=== PATIENT | male | born 1940 | race African-American/Black ===

== ENCOUNTER 2017-06-06 06:38 | Observation (INO) | payer OTHER ==
[~2017-06-06] VITALS: Ht 188 cm; Wt 104.1 kg
--- NOTE | ~2017-06-06 | P ---
[facility] [place] [address] PROCEDURE REPORT Name: SANDRA ALCARAZ Room #: 206-P [facility] M.R.#: [id number] Admission: 06/06/17 Attend Phys: Yovany Wheatley MD Discharge: Date of : 40 Report #: [id number] THIS REPORT FOR: //name// CC: Americo Wheatley PROCEDURE: Pacemaker implantation report. PREOPERATIVE DIAGNOSIS: Heart block. POSTOPERATIVE DIAGNOSIS: Heart block. HISTORY: The patient is a 77-year-old who I recently saw in consultation after he presented for a stress test and was found to have some evidence of Mobitz 1 and 2:1 heart block. I had the patient wear gambling monitor and showed that he had periods of complete heart block. He is here for dual chamber pacemaker implantation. ANESTHESIA: The patient underwent MAC anesthesia with no anesthesia related complications. DESCRIPTION OF PROCEDURE: The patient underwent informed consent. We discussed the details of the procedure including the risks, which include but not limited to bleeding, infection, vascular damage and cardiac perforation. He understood these risks and is willing to proceed. As such, he was brought to the EP laboratory in a fasting and sedated state, prepped and draped in a sterile fashion. He received IV antibiotics prior to the initiation of the procedure and underwent a venogram showing patency of left axillary vein. Next, I injected 20 mL of lidocaine below the level of left clavicle. Incision was made, pocket was created over the prepectoral fascia and access was obtained twice in the left axillary vein using the extrathoracic approach with sheaths positioned using the modified Seldinger technique. Next, the ventricular lead was placed into the right ventricle with adequate pacing and sensing thresholds. Next, I attempted to place the atrial lead. I placed the atrial lead 3 times and it would dislodge in the standard position. I think that he probably had some surgical changes to his atrium from prior heart surgery. I felt that this lead was not functioning and therefore another lead was opened and this dislodged once at a more lateral position and then I found another site and was able to deliver the lead here. I did test the lead by advancing the lead several times and this finally did not dislodge. It had good pacing and sensing thresholds. Next, the leads were sutured to the prepectoral fascia, were connected to the device. The pocket was irrigated with vancomycin and then the pocket was closed in 3 layers using 2-0 for the deep layer, 3-0 for the mid layer, 4-0 for the subcuticular layer and surgical glue was placed to the outer skin layer. The patient awoke neurologically and hemodynamically [address] [address] PROCEDURE REPORT Name: SANDRA ALCARAZ Room #: 206-P [facility] M.R.#: [id number] Admission: 06/06/17 Attend Phys: Yovany Wheatley MD Discharge: Date of : 40 Report #: [id number] intact with no complications and no significant bleeding. The implanted pacemaker was a [employer] model #KY0801, serial #[id number]. The atrial lead was a [employer] model #2088TC, 52 cm, serial #[id number]. This lead demonstrated a P-wave of 2.6 millivolts, pacing impedance of 400 ohms and pacing threshold 0.5 volts at 0.4 milliseconds. The RV lead was a [employer] model #2088TC, 58 cm, serial #[id number] with an R-wave of 8.4 millivolts, pacing impedance of 580 ohms and pacing threshold of 0.5 volts at 0.4 milliseconds. The lead that was initially used, but removed was a [employer] model #2088TC, 52 cm, serial #[id number]. The device programmed to the DDD 60-130 mode. There was some evidence of PMT and programming changes were made to avoid this. CONCLUSIONS: 1. Successful dual-chamber pacemaker implantation. 2. Satisfactory atrial and ventricular pacing and sensing thresholds. By: 1012 [id number] Yovany Wheatley MD /nt
--- NOTE | ~2017-06-06 | D ---
[facility] [place] [address] DISCHARGE SUMMARY Name: SANDRA ALCARAZ Room #: 206-P [facility] M.R.#: [id number] Admission: 06/06/17 Attend Phys: Yovany Wheatley MD Discharge: Date of : 40 Report #: [id number] THIS REPORT FOR: //name// CC: Americo Vang [facility] COURSE: The patient is a 77-year-old male well known to me. He was admitted for permanent pacemaker dual chamber after followup revealing complete heart block with significant bradycardia, although presyncopal. He has stable angina and we are treating that aggressively with medicines. This has not worsened. He subsequently underwent a dual chamber [employer] D[employer] pacemaker by EP service, Dr. Wheatley. He is up and ambulating here this morning. This arm was in the sling overnight. The site looks quite good. He is voicing no complaints. He is scheduled for a pacemaker check in [address] Wheatley, then will follow up with me 3 months later. His chest x-ray was performed this morning and there is no acute process, no pneumothorax. His pacemaker battery is in a good position. He remained hemodynamically stable. His blood pressure is 128/64, pulse 60. His exam is unremarkable. The site is clean and dry. Chest x-ray shows no pneumothorax. He will be discharged to home. His restrictions with the left upper extremity and shoulder have been instructed. He has this pacer and site check in [address] Wheatley. No lifting with that upper extremity. No MRI or dental work until further evaluation. He will be discharged back on his home medications of amlodipine 5, baby aspirin, Coreg 6.25, vitamin D, Plavix, colchicine, Lasix 40, insulin, lisinopril 40, omeprazole, Ranexa 500 b.i.d., Protonix, Crestor. DISCHARGE DIAGNOSES: 1. Complete heart block with placement of permanent pacemaker. 2. Coronary artery disease with stable angina, status post coronary artery bypass graft. These lesions are not amenable to intervention. 3. Diabetes. 4. Hypertension. 5. Hypercholesterolemia. 6. Moderate ischemic cardiomyopathy. 7. Back surgery. Thank you for asking me to assist in the care of this patient. By: [id number] 1045 Americo Young MD, FACC /nt
[~2017-06-06 06:38] MED LIST: ACIDOPHILUS1 EACH PO; AMARYL2 MG PO; AMLODIPINE BESYL5 MG PO; ASPIR 8181 M1 PO; ASPIRIN325 PO; AUGMENTIN 875-1 EACH PO; COLCHICINE0.6 MG PO; CRESTOR10 MG PO; FUROSEMIDE 40 M40 M1 PO; GLUCOPHAGE500 MG PO; HUMALOG100 UNIT/1 SQ; IMDUR 30 MG TAB30 M1 PO; IMDUR 60 MG TAB60 M1 PO; KLOR-CON 1010 MEQ PO; LANTUS100 UNIT/M SUBQ; LISINOPRIL40 MG PO; LOPRESSOR100 MG PO; LORATIDINE 10 M10 M1 PO; ONGLYZA2.5 MG PO; PLAVIX 75 MG TA75 M1 PO; PRILOSEC 20 MG20 MG PO; RANEXA 500 MG500 M1 PO; RANEXA500 MG PO; SIMVASTATIN40 MG PO; ULORIC40 MG PO; ZOFRAN 4 MG ORAL4 M1 DIS
[2017-06-06 07:09] VITALS: BP 147/53
[2017-06-06] MEDS ORDERED: AMLODIPINE BESYL5 MG PO (07:14)
[2017-06-06] MEDS ORDERED: VITAMIN D1000 UNI1 PO (07:15)
[2017-06-06] MEDS ORDERED: COREG6.25 MG PO (07:15)
[2017-06-06 07:16] LABS: HEMATOCRIT 35.3 % (42.0-52.0); HEMOGLOBIN 11.9 gm/dL (14.0-18.0); MCH 30.6 pg (26.0-34.0); MCHC 33.7 g/dL (28.0-37.0); PLATELET COUNT 267 thou/uL (150-400); RBC 3.88 mil/uL (4.50-6.00); RDW 12.6 % (10.5-14.5); WBC 9.2 thou/uL (4.0-11.0)
[2017-06-06 07:17] LABS: MANUAL DIFF YES
[2017-06-06 07:27] LABS: CALCIUM 9.2 mg/dL (8.5-10.1); CREATININE 2.6 mg/dL (0.7-1.3); POTASSIUM 4.3 mmol/L (3.5-5.1)
[2017-06-06 07:33] LABS: ALBUMIN 3.7 g/dL (3.4-5.0); TOTAL BILIRUBIN 0.3 mg/dL (<0.1-1.0); TOTAL PROTEIN 7.6 g/dL (6.4-8.2)
[2017-06-06 07:35] LABS: PROTIME 10.2 Seconds (9.3-11.4)
[2017-06-06 08:03] LABS: ABSOLUTE NEUTROPHILS 6.3 thou/uL (1.4-8.2); TOTAL CELL COUNT 100
[2017-06-06 08:04] LABS: ANISOCYTOSIS SLIGHT
[2017-06-06 11:34] VITALS: BP 151/77
[2017-06-06 16:47] VITALS: BP 125/77
[2017-06-06 19:43] VITALS: BP 147/76
[2017-06-06 23:37] VITALS: BP 139/80
[2017-06-07 03:36] VITALS: BP 140/74
[2017-06-07 07:40] VITALS: BP 128/65
[2017-06-07 12:41] VITALS: BP 128/65
[2017-06-07 19:20] VITALS: BP 128/65
== END 2017-06-07 13:57 | disposition home or self-care (01) ==
LOC: CATH 06:38 → 2N 11:26 → CATH 15:26 → 2N 06-07 13:57
PROVIDERS: Internal Medicine Cardiovascular Disease
DX: I25.10 Atherosclerotic heart disease of native coronary artery without angina pectoris (principal); I25.2 Old myocardial infarction; E78.5 Hyperlipidemia, unspecified; E11.22 Type 2 diabetes mellitus with diabetic chronic kidney disease; I25.5 Ischemic cardiomyopathy; I12.9 Hypertensive chronic kidney disease with stage 1 through stage 4 chronic kidney disease, or unspecified chronic kidney disease; N18.9 Chronic kidney disease, unspecified; Z95.1 Presence of aortocoronary bypass graft; I44.2 Atrioventricular block, complete; E78.00 Pure hypercholesterolemia, unspecified
CPT/HCPCS: 62110; 62900; 70005

== ENCOUNTER → 2018-03-24 | Outpatient (CLI) | payer OTHER ==
[~2018-03-24] MED LIST changes: +COREG6.25 MG PO; +VITAMIN D1000 UNI1 PO
== END ==
LOC: ULTRA 06:28
DX: N28.1 Cyst of kidney, acquired (principal); K76.0 Fatty (change of) liver, not elsewhere classified

== ENCOUNTER 2018-04-17 15:21 | Inpatient (IN) | payer OTHER ==
[~2018-04-17] VITALS: Ht 188 cm; Wt 102.1 kg
--- NOTE | ~2018-04-17 | EKG ---
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1940 Requested By: Quinton Pena Order Number: [id number] MD: Carlos Orellana Measurements Intervals [place] Rate: 109 P: 123 CO: 95 QRS: 2 QRSD: 163 T: 167 QT: 382 QTc: 515 Interpretive Statements Ventricular-paced rhythm No further analysis attempted due to paced rhythm Compared to ECG 07/07/2016 18:34:11 Atrial fibrillation no longer present Intraventricular conduction delay no longer present Myocardial infarct finding no longer present Electronically Signed On 04-18-2018 11:34:54 CDT by Carlos Orellana [email or web address] <ELECTRONICALLY SIGNED> By: Carlos Orellana MD 04/18/18 1134 1526 1526 Carlos Orellana MD /RAMEZ
--- NOTE | ~2018-04-17 | HC ---
[facility] [place] [address] CONSULTATION Name: SANDRA ALCARAZ Room #: 358-P [facility] IN ..#: [id number] Admission: 04/17/18 Attend Phys: Win Infante MD Discharge: 04/20/18 Date of : 40 Report #: [id number] THIS REPORT FOR: //name// CC: Rob Infante DATE OF SERVICE: 04/20/2018 REASON FOR CONSULTATION: Chronic kidney disease. HISTORY OF PRESENT ILLNESS: The patient is well known to our service, followed in our offices by Dr. Marlow with chronic kidney disease and a baseline creatinine of about 2. He was admitted with a subendocardial myocardial infarction 3 days ago. He stabilized since that time. His creatinine is stabilized in the range of 2.2. Chest pain has resolved. He is not short of breath. PAST MEDICAL HISTORY: History of coronary bypass. He has had multiple coronary artery catheterizations since that time, apparently has disease, not amenable to revascularization. Last year, he had a pacemaker for complete heart block. He has also had longstanding diabetes mellitus with peripheral neuropathy, hypertension and dyslipidemia. FAMILY HISTORY: Negative for renal disease. SOCIAL HISTORY: No cigarettes or alcohol. HOME MEDICATIONS: Include lisinopril 40 mg daily, furosemide 40 mg b.i.d., Ranexa, Crestor 10 mg daily, Imdur 60 mg daily, amlodipine 10 mg daily, Coreg 6.25 mg b.i.d., omeprazole 20 mg daily, Xarelto 15 mg daily. REVIEW OF SYSTEMS: GENERAL: He is currently feeling fairly well. EYES: He has some trouble with his eyes, but he cannot give me a specific diagnosis or whether this is due to diabetes. ENT: Hearing okay, swallows okay. No mouth sores. ENDOCRINE: Positive for the diabetes. RESPIRATORY: Not short-winded, no pleuritic pain. No cough. CARDIAC: He did have the chest pain that has resolved. GASTROINTESTINAL: No nausea, vomiting, diarrhea or bloody stools. GENITOURINARY: Good urinary stream without dysuria, hematuria or stones. NEUROLOGIC: He does have numbness and tingling in his feet consistent with peripheral neuropathy. SKIN: No skin rashes, lesions or ulcers. MUSCULOSKELETAL: No arthritis. [address] [address] CONSULTATION Name: SANDRA ALCARAZ Room #: 358-P [facility].#: [id number] Admission: 04/17/18 Attend Phys: Win Infante MD Discharge: 04/20/18 Date of : 40 Report #: [id number] SOCIAL HISTORY: No cigarettes or alcohol. PHYSICAL EXAMINATION: GENERAL: This is a reasonably comfortable-appearing elderly gentleman in no acute distress. SKIN: Unremarkable. SKELETAL: Well developed, well nourished, nonobese. HEENT: Extraocular movements are full. Vision grossly intact. No scleral icterus. Hearing intact. Mucous membranes are moist. Tongue, buccal mucosa benign. NECK: Supple. CHEST: Clear to auscultation. HEART: Regular, without murmurs, gallops or rubs. ABDOMEN: Soft and nontender, without bruits, masses or organomegaly. EXTREMITIES: Show no peripheral edema. Pulses intact. NEUROLOGIC: Shows some numbness in the feet. LABORATORY DATA: Urinalysis did not show proteinuria. Hemoglobin was 10.6, creatinine 2.3, BUN 32. ASSESSMENT AND PLAN: 1. Chronic kidney disease. He has chronic kidney disease followed in our offices. He has had longstanding diabetes and hypertension. I do not believe a more specific diagnosis has been made, but he has been fairly stable. 2. Coronary artery disease, status post recent subendocardial myocardial infarction, previous coronary bypass. 3. History of complete heart block with pacemaker. 4. History of hypertension. 5. Longstanding diabetes mellitus with peripheral neuropathy. <ELECTRONICALLY SIGNED> By: Americo Pruett MD 04/22/18 1150 0749 0915 Americo Pruett MD /nt
--- NOTE | ~2018-04-17 | HC ---
[facility] [place] [address] CONSULTATION Name: SANDRA ALCARAZ Room #: 358-P [facility].#: [id number] Admission: 04/17/18 Attend Phys: Win Infante MD Discharge: Date of : 40 Report #: [id number] THIS REPORT FOR: //name// CC: Rob Infante INDICATION: Chest pains. HISTORY OF PRESENT ILLNESS: This is a 77-year-old gentleman with a history of CAD, presenting with chest discomfort. Yesterday, he developed burning-like sensation in the substernal area, nonradiating. He denies any associated diaphoresis or shortness of breath. It lasted for approximately 30 minutes in duration. There is no history of fever, chills, PND or orthopnea. PAST MEDICAL HISTORY: History of CABG. Cardiac catheterization in [address] Young revealed a patent WHITE to the LAD, however, there is total occlusion within the [place] LAD after the anastomosis. There were patent vein graft to OM1, OM2 and the PDA. Since then, he has had subsequent cardiac catheterizations at other institutions, reportedly had vessels not amenable to revascularization. History of pacemaker insertion in 2017 for heart block. History of diabetes mellitus, hypertension, hypercholesterolemia, PAF. ALLERGIES: None. MEDICATIONS: At home include lisinopril 40 mg daily, Lasix 40 mg twice a day, Ranexa therapy, potassium, Crestor 10 mg at night, Imdur 60 mg, aspirin once a day, insulin, amlodipine, Coreg 6.25 mg twice a day, omeprazole and Xarelto 50 mg in the evening. SOCIAL HISTORY: Negative for tobacco use. FAMILY HISTORY: Negative for premature CAD. REVIEW OF SYSTEMS: A full 10-point review of systems performed. Only the pertinent positives and negatives are described in the HPI. PHYSICAL EXAMINATION: VITAL SIGNS: Blood pressure 136/75, heart rate is 60 beats per minute. GENERAL APPEARANCE: An overweight male in no acute respiratory distress. HEAD AND EYES: Normocephalic. Sclerae are anicteric. ENT: Oral mucosa moist. NECK: Supple. LUNGS: Clear to auscultation. CARDIAC: Regular rate and rhythm. S1, S2 positive. ABDOMEN: Soft, nontender. EXTREMITIES: No cyanosis. Trace edema. [facility] [address] [place] [address] CONSULTATION Name: SANDRA ALCARAZ Room #: 358-P [facility] MIris#: [id number] Admission: 04/17/18 Attend Phys: Win Infante MD Discharge: Date of : 40 Report #: [id number] ECG reveals a ventricular paced rhythm. LABORATORY VALUES: Peak troponin is 2.75. White count 12.5, hemoglobin is 11.8. Initial creatinine was 2.4, down to 2.1 today. ASSESSMENT AND PLAN: 1. Non-ST elevation myocardial infarction, he is chest pain free at this time on IV heparin. We will continue with medical therapy for now. We will need to discuss with Dr. Young regarding a repeat cardiac catheterization versus noninvasive stress testing. It would also be determined if his creatinine improves below 2.0. 2. Heart block, status post permanent pacemaker. Continue telemetry. 3. Chronic renal insufficiency, creatinine of 2.4 initially, down to 2.1. Continue with hydration. 4. Paroxysmal atrial fibrillation, hold on anticoagulation therapy as he may require an invasive procedure. Continue with the beta felisha. 5. Hypertension, continue with cardiac medications. <ELECTRONICALLY SIGNED> By: Carlos Orellana MD 04/19/18 0753 1127 1244 Carlos Orellana MD /nt
[2018-04-17 16:08] VITALS: BP 154/87
[2018-04-17] MEDS ORDERED: XARELTO15 MG PO (16:20)
[2018-04-17 16:24] LABS: EOSINOPHILS 1.6 % (0.0-3.0); HEMATOCRIT 37.4 % (42.0-52.0); HEMOGLOBIN 12.6 gm/dL (14.0-18.0); LYMPHOCYTES 17.7 % (24.0-44.0); MCH 30.9 pg (26.0-34.0); MCHC 33.6 g/dL (28.0-37.0); MCV 91.8 fL (80.0-100.0); MONOCYTES 8.3 % (1.0-8.0); PLATELET COUNT 311 thou/uL (150-400); POLYS 71.4 % (36.0-66.0); RBC 4.07 mil/uL (4.50-6.00); RDW 12.9 % (10.5-14.5); WBC 11.2 thou/uL (4.0-11.0)
[2018-04-17 16:29] LABS: ANION GAP 9 mmol/L (7-16); BUN 32 mg/dL (7-18); CALCIUM 9.7 mg/dL (8.5-10.1); CHLORIDE 104 mmol/L (98-107); CO2 24 mmol/L (21-32); CREATININE 2.4 mg/dL (0.7-1.3); GLUCOSE 137 mg/dL (74-106); POTASSIUM 3.8 mmol/L (3.5-5.1); SODIUM 137 mmol/L (136-145)
[2018-04-17 16:39] LABS: ALBUMIN 4.1 g/dL (3.4-5.0); MAGNESIUM 2.2 mg/dL (1.8-2.4); SGOT 18 U/L (15-37); SGPT 19 U/L (30-65); TOTAL BILIRUBIN 0.5 mg/dL (<0.1-1.0); TOTAL PROTEIN 8.2 g/dL (6.4-8.2)
[2018-04-17 16:40] LABS: TROPONIN-I < 0.04 ng/mL (<0.06)
[2018-04-17 18:21] VITALS: BP 142/65
[2018-04-17 19:00] VITALS: BP 138/70
[2018-04-17 19:20] VITALS: BP 166/90
[2018-04-18 01:08] LABS: HEMATOCRIT 31.9 % (42.0-52.0); HEMOGLOBIN 11.1 gm/dL (14.0-18.0); MCH 31.4 pg (26.0-34.0); MCHC 34.6 g/dL (28.0-37.0); MCV 90.8 fL (80.0-100.0); RBC 3.52 mil/uL (4.50-6.00); RDW 12.8 % (10.5-14.5); WBC 9.6 thou/uL (4.0-11.0)
[2018-04-18 01:20] LABS: INR 1.3
[2018-04-18 04:00] VITALS: BP 138/64
[2018-04-18 06:37] LABS: HEMATOCRIT 33.6 % (42.0-52.0); HEMOGLOBIN 11.8 gm/dL (14.0-18.0); MCH 31.7 pg (26.0-34.0); MCHC 35.1 g/dL (28.0-37.0); MCV 90.3 fL (80.0-100.0); RBC 3.72 mil/uL (4.50-6.00); RDW 12.4 % (10.5-14.5); WBC 12.5 thou/uL (4.0-11.0)
[2018-04-18 06:48] LABS: CALCIUM 9.3 mg/dL (8.5-10.1); CREATININE 2.1 mg/dL (0.7-1.3)
[2018-04-18 08:00] VITALS: BP 136/75
[2018-04-18 12:00] VITALS: BP 123/66
[2018-04-18 15:14] LABS: URINE BILIRUBIN NEGATIVE (Negative); URINE BLOOD NEGATIVE (Negative); URINE CLARITY CLEAR; URINE COLOR YELLOW; URINE GLUCOSE-RANDOM* TRACE (Negative); URINE KETONES NEGATIVE (Negative); URINE LEUKOCYTES NEGATIVE (Negative); URINE NITRITE NEGATIVE (Negative); URINE PROTEIN (DIPSTICK) NEGATIVE (Negative); URINE SPECIFIC GRAVITY 1.015 (1.005-1.035); URINE UROBILINOGEN 0.2 E.U./dl (0.2-1.0)
[2018-04-18 15:21] LABS: URINE CREATININE-RANDOM* 58.5 mg/dL; URINE PROTEIN-RANDOM* 7.4 mg/dL (<11.9)
[2018-04-18 16:00] VITALS: BP 136/71
[2018-04-18 19:30] VITALS: BP 143/53
[2018-04-19 03:30] LABS: HEMATOCRIT 31.4 % (42.0-52.0); HEMOGLOBIN 10.8 gm/dL (14.0-18.0); MCH 31.2 pg (26.0-34.0); MCHC 34.4 g/dL (28.0-37.0); MCV 90.6 fL (80.0-100.0); RBC 3.46 mil/uL (4.50-6.00); RDW 12.7 % (10.5-14.5); WBC 9.3 thou/uL (4.0-11.0)
[2018-04-19 03:39] LABS: CALCIUM 8.7 mg/dL (8.5-10.1); CREATININE 2.2 mg/dL (0.7-1.3); POTASSIUM 4.2 mmol/L (3.5-5.1); TOTAL BILIRUBIN 0.3 mg/dL (<0.1-1.0); TOTAL PROTEIN 6.6 g/dL (6.4-8.2)
[2018-04-19 03:40] VITALS: BP 123/76
[2018-04-19 07:04] VITALS: BP 114/64
[2018-04-19 11:59] VITALS: BP 125/66
[2018-04-19 17:24] VITALS: BP 143/72
[2018-04-19 19:20] VITALS: BP 139/78
[2018-04-20 04:30] VITALS: BP 112/59
[2018-04-20 05:59] LABS: HEMATOCRIT 30.5 % (42.0-52.0); HEMOGLOBIN 10.6 gm/dL (14.0-18.0); MCH 31.3 pg (26.0-34.0); MCHC 34.9 g/dL (28.0-37.0); MCV 89.6 fL (80.0-100.0); RBC 3.4 mil/uL (4.50-6.00); RDW 12.8 % (10.5-14.5); WBC 9.2 thou/uL (4.0-11.0)
[2018-04-20 06:20] LABS: ALBUMIN 2.9 g/dL (3.4-5.0); CALCIUM 8.2 mg/dL (8.5-10.1); CREATININE 2.3 mg/dL (0.7-1.3); POTASSIUM 3.8 mmol/L (3.5-5.1); TOTAL BILIRUBIN 0.3 mg/dL (<0.1-1.0); TOTAL PROTEIN 6.3 g/dL (6.4-8.2)
[2018-04-20 08:00] VITALS: BP 142/72
[2018-04-20 12:00] VITALS: BP 137/78
[2018-04-20 16:00] VITALS: BP 146/73
[2018-04-20] MEDS ORDERED: NITROGLYCERIN0.4 MG SUBLING (16:15)
[2018-04-20 16:30] VITALS: BP 142/72
[2018-04-20] MEDS ORDERED: PROTONIX40 M1 PO (16:49)
== END 2018-04-20 17:51 | disposition home or self-care (01) | DRG 280 ==
LOC: ER 15:21 → 3W 17:24 → EROBS 17:24 → 3W 19:04 → ENTRNSPT 04-20 17:17 → 3W 04-20 17:51
PROVIDERS: Emergency Medicine; Hospitalist; Internal Medicine Cardiovascular Disease
PROC: 05HY33Z Insertion of Infusion Device into Upper Vein, Percutaneous Approach (ICD-10-PCS; principal; 2018-04-17)
DX: I21.4 Non-ST elevation (NSTEMI) myocardial infarction (principal); N17.0 Acute kidney failure with tubular necrosis; I44.2 Atrioventricular block, complete; I50.30 Unspecified diastolic (congestive) heart failure; I13.0 Hypertensive heart and chronic kidney disease with heart failure and stage 1 through stage 4 chronic kidney disease, or unspecified chronic kidney disease; E78.00 Pure hypercholesterolemia, unspecified; K21.9 Gastro-esophageal reflux disease without esophagitis; I25.10 Atherosclerotic heart disease of native coronary artery without angina pectoris; N18.9 Chronic kidney disease, unspecified; I48.0 Paroxysmal atrial fibrillation; E11.51 Type 2 diabetes mellitus with diabetic peripheral angiopathy without gangrene; E78.5 Hyperlipidemia, unspecified; E11.22 Type 2 diabetes mellitus with diabetic chronic kidney disease; E11.42 Type 2 diabetes mellitus with diabetic polyneuropathy; Z95.5 Presence of coronary angioplasty implant and graft; Z79.4 Long term (current) use of insulin; I25.2 Old myocardial infarction; Z95.1 Presence of aortocoronary bypass graft; Z79.899 Other long term (current) drug therapy
CPT/HCPCS: 10779; 27001

== ENCOUNTER 2019-01-31 12:20 | Emergency (ER) | payer OTHER ==
[~2019-01-31] VITALS: Ht 188 cm; Wt 95.3 kg
[~2019-01-31 12:20] MED LIST changes: +NITROGLYCERIN0.4 MG SUBLING; +PROTONIX40 M1 PO; +XARELTO15 MG PO
[2019-01-31 12:31] VITALS: BP 138/63
[2019-01-31] MEDS ORDERED: PREDNISONE 20 M20 MG PO (13:06)
[2019-01-31] MEDS ORDERED: NORFLEX100 MG PO (13:08)
[2019-01-31] MEDS ORDERED: TRAMADOL 50 MG50 MG PO (13:08)
== END 2019-01-31 13:45 | disposition home or self-care (01) ==
LOC: ER 12:20
DX: M25.511 Pain in right shoulder (principal); I12.9 Hypertensive chronic kidney disease with stage 1 through stage 4 chronic kidney disease, or unspecified chronic kidney disease; E11.22 Type 2 diabetes mellitus with diabetic chronic kidney disease; N18.9 Chronic kidney disease, unspecified; K21.9 Gastro-esophageal reflux disease without esophagitis; I25.10 Atherosclerotic heart disease of native coronary artery without angina pectoris; I73.9 Peripheral vascular disease, unspecified; Z95.5 Presence of coronary angioplasty implant and graft; Z79.4 Long term (current) use of insulin; Z95.1 Presence of aortocoronary bypass graft

== ENCOUNTER → 2019-11-18 | Outpatient (CLI) | payer OTHER ==
[~2019-11-18] MED LIST changes: +MINOCYCLINE HC100 M2 PO; +NORFLEX100 MG PO; +PREDNISONE 20 M20 MG PO; +TOPROL XL50 MG PO; +TRAMADOL 50 MG50 MG PO
== END ==
LOC: SJCVCIMAG 11-12 10:42
DX: I08.8 Other rheumatic multiple valve diseases (principal); I44.2 Atrioventricular block, complete; I42.8 Other cardiomyopathies; I10 Essential (primary) hypertension; I25.5 Ischemic cardiomyopathy; I25.810 Atherosclerosis of coronary artery bypass graft(s) without angina pectoris; I48.91 Unspecified atrial fibrillation; E78.5 Hyperlipidemia, unspecified; E11.9 Type 2 diabetes mellitus without complications; E78.00 Pure hypercholesterolemia, unspecified; I25.2 Old myocardial infarction; Z79.82 Long term (current) use of aspirin; Z79.4 Long term (current) use of insulin; Z79.899 Other long term (current) drug therapy; Z95.1 Presence of aortocoronary bypass graft; Z95.0 Presence of cardiac pacemaker

== ENCOUNTER → 2019-11-29 | Outpatient (CLI) | payer OTHER | LOC: SJCVCIMAG 10:24 | DX: I65.23 Occlusion and stenosis of bilateral carotid arteries (principal); I25.10 Atherosclerotic heart disease of native coronary artery without angina pectoris; E78.00 Pure hypercholesterolemia, unspecified; I42.9 Cardiomyopathy, unspecified; R53.83 Other fatigue; I73.9 Peripheral vascular disease, unspecified; R06.02 Shortness of breath ==

== ENCOUNTER 2019-12-03 09:05 | Observation (INO) | payer OTHER ==
[2019-12-03] VITALS (13 sets, daily range): BP systolic 101–130; BP diastolic 49–79
[~2019-12-03] VITALS: Ht 188 cm; Wt 100.8 kg
--- NOTE | ~2019-12-03 | P ---
[facility] [place] [address] PROCEDURE REPORT Name: SANDRA ALCARAZ Room #: 211-P [facility] M..#: [id number] Admission: 12/03/19 Attend Phys: Yovany Wheatley MD Discharge: Date of : 40 Report #: [id number] THIS REPORT FOR: //name// CC: Rob Wheatley PROCEDURE: Bi-V pacemaker. PREOPERATIVE DIAGNOSIS: 1. Complete heart block. 2. Chronic right ventricular pacing. 3. Cardiomyopathy. HISTORY: The patient is a 79-year-old male with history of coronary artery disease, status post CABG as well as prior pacemaker implantation for complete heart block, who has had a decreased ejection fraction, likely due to chronic right ventricular pacing. He has [employer] functional class 2-3 heart failure symptoms. He is here for upgrade from a dual chamber pacemaker to a Bi-V pacemaker. ANESTHESIA: The patient underwent MAC anesthesia with no anesthesia related complications. DESCRIPTION OF PROCEDURE: The patient underwent informed consent. We discussed the details of the procedure including the risks, which include but not limited to bleeding, infection, vascular damage, cardiac perforation, pneumothorax. He understood these risks and is willing to proceed. The patient was brought to the EP laboratory in fasting and sedated state, prepped and draped in a sterile fashion, received IV antibiotics prior to initiation of the procedure. He then underwent a venogram showing patency of the left axillary vein. Next, I injected lidocaine at the incision site. The chronic pocket was entered and then I obtained access to left axillary vein x 1 using the extrathoracic approach with sheath positioned using the modified Seldinger technique. Next, a coronary sinus guide sheath was placed into the right atrium. I had difficulties finding the CS and in fact it was quite lower than where I was initially looking at the heel of the RV lead. Finally, when I got the sheath into the coronary sinus, I performed a venogram using a balloon and there was a large middle cardiac vein. There was nothing on the middle coronary sinus and there was a large anterolateral branch. I did initially have difficulties even getting into the coronary sinus and had to use a double wire technique as I initially had engaged the middle cardiac vein and then used another wire to get into the coronary sinus body. I then attempted to take a lead up into the coronary sinus, but the lead was very difficult to advance. I therefore removed this sheath and placed a new 9-Andorran short sheath and attempted to advance the lead again and very similarly I was having much difficulty advancing the lead in the sheath. It is likely that there was a lot [facility] [address] [place] [address] PROCEDURE REPORT Name: SANDRA ALCARAZ Room #: 211-P [facility] Phillip MMegRMeg#: [id number] Admission: 12/03/19 Attend Phys: Yovany Wheatley MD Discharge: Date of : 40 Report #: [id number] of tension on the sheath in the atrium, which was making it hard to advance the lead as there was probably a kink somewhere. Therefore, we removed the 9-Andorran short sheath and the 9-Andorran coronary sinus sheath and placed a 10-Andorran short sheath and a larger Andorran coronary sinus sheath and through this all over the wire that we had left inside the coronary sinus. Once I had placed a new sheath into the coronary sinus, the LV lead easily tracked and I was able to place this into this anterolateral branch. There were good pacing thresholds at the distal tips. The sheaths were split. The lead remained stable. The lead was sutured to prepectoral fascia. I changed the lead over to the newer device. The pocket was irrigated with vancomycin and the pocket was then closed in 2 layers using 2-0 for the deep layer, 3-0 for the middle layer and surgical glue was placed on outer skin layer. The patient awoke neurologically and hemodynamically intact. No complications and no significant bleeding. The explanted pacemaker was a [employer] model [id number], serial #[id number], implanted on 06/06/2017. His two preexisting leads were also implanted at that time. His newly implanted device was a [employer] model #3562, serial #[id number]. The atrial lead was a [employer] model #2088TC, 52 cm, serial #[id number]. RV lead was a [employer] model #2088TC, serial #[id number]. The newly implanted LV lead was a [employer], model #1458, 86 cm, serial [id number]. The atrial lead demonstrated no underlying P waves. The pacing impedance was 340 ohms, pacing threshold 0.5 volts at 0.4 milliseconds. The RV lead demonstrated no underlying R waves, pacing impedance of 400 ohms and the pacing threshold 0.75 volts at 0.4 milliseconds and the LV lead demonstrated a pacing threshold of 2 volts at 0.4 milliseconds, which was the distal 2 poles of the lead. The device was programmed to the DDDR 60-130 mode. The LV lead was programmed to pace 20 milliseconds prior to the RV lead, which resulted in the most narrow QRS complex at 140 milliseconds. CONCLUSIONS: 1. Successful upgrade to a Bi-V pacemaker. 2. Satisfactory atrial, right ventricular and left ventricular pacing and sensing thresholds. By: 1332 [id number] Yovany Wheatley MD /lamonte
[~2019-12-03 09:05] MED LIST changes: -MINOCYCLINE HC100 M2 PO; -TOPROL XL50 MG PO
[2019-12-03 09:56] LABS: ABSOLUTE NEUTROPHILS 4.7 thou/uL (1.4-8.2); BASOPHILS 1.4 % (0.0-2.0); EOSINOPHILS 2.6 % (0.0-3.0); HEMATOCRIT 26.9 % (42.0-52.0); HEMOGLOBIN 8.9 gm/dL (14.0-18.0); LYMPHOCYTES 19.5 % (24.0-44.0); MCH 31.2 pg (26.0-34.0); MCHC 33.3 g/dL (28.0-37.0); MCV 93.6 fL (80.0-100.0); PLATELET COUNT 295 thou/uL (150-400); POLYS 64.5 % (36.0-66.0); RBC 2.87 mil/uL (4.50-6.00); RDW 12.5 % (10.5-14.5); WBC 7.3 thou/uL (4.0-11.0)
[2019-12-03 10:04] LABS: CALCIUM 9.4 mg/dL (8.5-10.1); CREATININE 2.7 mg/dL (0.7-1.3); POTASSIUM 4.9 mmol/L (3.5-5.1)
[2019-12-03] MEDS ORDERED: TOPROL XL50 MG PO (10:05)
[2019-12-03 10:06] LABS: INR 1.1; PROTIME 11.4 Seconds (9.3-11.4)
[2019-12-03 10:10] LABS: ALBUMIN 3.7 g/dL (3.4-5.0); TOTAL BILIRUBIN 0.5 mg/dL (<0.1-1.0); TOTAL PROTEIN 7.5 g/dL (6.4-8.2)
[2019-12-03] MEDS ORDERED: XARELTO15 MG PO (14:20)
[2019-12-03] MEDS ORDERED: MINOCYCLINE HC100 M2 PO (14:22)
--- NOTE | 2019-12-03 18:27 | NUR ---
[facility] PACEMAKER BY DR MATHEWS. ALERT X4, DENIES PAIN, DENIES SOB, INCISSION SITE LEFT SUBCLAVICAL INTACT NOT DRAINAGE NOT SWELLING, HOB ELEVATED TO 45%. IMMOBALIZER IN PLACE. EDUCATED PATIENT BEDREST THROUGHT THE NIGHT AND KEEPING IMMOBALIZER IN PLACE. PATIETN ASSESMENT COMPLETED. WILL BE ON OBSERVATION AND DC TOMORROW PER DR MATHEWS NOTES. PACEMAKER IS A [facility] DDD UPGRADE TO BIV RATE SET AT 60-130 AVPACED ON TELE. ORDERS ACKNOWLEDGE AND PROTOCOL IN PLACE FOR INPLATABLE DEVICE PER DR TAO ORDERS. FALL PRECAUTIONS IN PLACE. CALL LIGHT IN REACH. URINAL AND PERSONAL ITEMS CLOSE TO PT. SEVERAL FAMILY MEMEBERS IN ROOM AT THIS TIME.
[2019-12-04 00:05] VITALS: BP 134/67
[2019-12-04 04:18] VITALS: BP 138/66
[2019-12-04 05:22] LABS: CALCIUM 8.7 mg/dL (8.5-10.1); CREATININE 2.6 mg/dL (0.7-1.3)
--- NOTE | 2019-12-04 05:58 | NUR ---
ASSUME CARE 1900. PT/VITALS STABLE. PATIENT DENIES ANY PAIN AND TOLERATES ACTIVITY WELL. ON BEDREST POST EST CHEST PACEMAKER PLACMENT. pACE MAKER IS TRANSVENOUS/DEMAND MODE. AV PACED ON MONITOR SITE APPEARS C/D/I WITH NO BRUISING, DRAINAGE OR HEMATOMA. SURGICAL GLUE INTACT. LEFT ARM IMMOBILIZED. ASSESSMENT CHARTED. PROGRESSING WELL WIHT POC. PLAN IS CHEST X-RAY TO CHECK PACEMAKER PLACEMENT AND THEN DISCHARGE HOME TODAY. WILL CONTINUE TO MONITOR AND FOLLOW WITH POC
[2019-12-04 07:00] VITALS: BP 153/59
--- NOTE | 2019-12-04 11:10 | NUR ---
RECEIVED PT'S CARE AROUND 0730; AOX4; ON BED; DURING ASSESSMENT NO C/O PAIN; INCISION OVER L. SIDE CHEST; C/D/I; HR ON THE 60s; AM MEDICATION GIVEN; EDUCATED ABOUT PACEMAKER PREVENTIONS; ST. UNDERSTANDING; EDUCATED ABOUT FALL PREVENTIONS; ST. UNDERSTANDING; ASSESSMENT CHARGED; FOLLOWING POC; D/C ORDERS ON PLACE; PT. NOTIFIED; WORKING ON D/C ORDERS;
[2019-12-04 11:14] VITALS: BP 153/59
[2019-12-04 11:57] VITALS: BP 153/59
== END 2019-12-04 11:59 | disposition home or self-care (01) ==
LOC: CATH 09:05 → TBACV 12:14 → CATH 12:21 → 2N 15:13
PROVIDERS: ADMIT Internal Medicine Cardiovascular Disease
DX: I25.5 Ischemic cardiomyopathy (principal); I25.10 Atherosclerotic heart disease of native coronary artery without angina pectoris; Z95.1 Presence of aortocoronary bypass graft
CPT/HCPCS: 62110; 62900; 70005

== ENCOUNTER → 2019-12-09 | Outpatient (CLI) | payer OTHER ==
[~2019-12-09] MED LIST changes: +MINOCYCLINE HC100 M2 PO; +TOPROL XL50 MG PO
== END ==
LOC: SJCVC 15:23
DX: Z45.018 Encounter for adjustment and management of other part of cardiac pacemaker (principal); I42.9 Cardiomyopathy, unspecified

== ENCOUNTER → 2019-12-27 | Outpatient (CLI) | payer OTHER ==
[2019-12-27 10:10] VITALS: BP 141/60
[2019-12-27 12:15] VITALS: BP 147/59
--- NOTE | 2019-12-27 14:54 | NUR ---
IN FOR 1ST INJECTAFER INFUSION. ADMISSION HISTORY AND ASSESMENT COMPLETED. PLACED IV AND INFUSED INJECTAFER OVER 30 MINUTES. TOLERATED WELL. OBSERVED FOR 30 MINUTES. POST VITAL SIGNS GOOD. REMOVED IV AND DISMISSED IN STABLE CONDITION. TO RETURN NEXT FRIDAY FOR 2ND INFUSION.
== END ==
LOC: OPONC 12-22 14:20
DX: N18.3 Chronic kidney disease, stage 3 (moderate) (principal); D63.1 Anemia in chronic kidney disease
CPT/HCPCS: 95000

== ENCOUNTER → 2019-12-28 | Outpatient (CLI) | payer OTHER | LOC: SJCVC 11:18 | DX: R94.31 Abnormal electrocardiogram [ECG] [EKG] (principal); I48.91 Unspecified atrial fibrillation; Z95.0 Presence of cardiac pacemaker ==

== ENCOUNTER → 2020-01-03 | Outpatient (CLI) | payer OTHER ==
[2020-01-03 10:54] VITALS: BP 132/56
[2020-01-03 11:45] VITALS: BP 131/58
--- NOTE | 2020-01-03 11:54 | NUR ---
IN FOR 2ND INJECTAFER INFUSION. STATED HAD NO SIDE EFFECTS FROM LAST WEEK'S INFUSION AND THAT HE IS FEELING A LITTLE LESS COLD. HIS MAIN COMPLAINT WAS FEELING REALLY COLD ALL THE TIME AND FATIGUE. TOLERATED INFUSION WITHOUT INCIDENT. OBSERVED FOR 30 MINUTES. POST VITAL SIGNS GOOD. REMOVED IV AND DISMISSED IN STABLE CONDITION.
== END ==
LOC: OPONC 09:20
DX: N18.3 Chronic kidney disease, stage 3 (moderate) (principal); D63.1 Anemia in chronic kidney disease
CPT/HCPCS: 95000

== ENCOUNTER → 2020-03-16 | Outpatient (CLI) | payer OTHER | LOC: SJCVCIMAG 08:37 | PROVIDERS: ATTEND Internal Medicine Cardiovascular Disease | DX: Z45.018 Encounter for adjustment and management of other part of cardiac pacemaker (principal); I34.0 Nonrheumatic mitral (valve) insufficiency; I11.9 Hypertensive heart disease without heart failure; I44.2 Atrioventricular block, complete; R00.1 Bradycardia, unspecified; I25.5 Ischemic cardiomyopathy; I25.810 Atherosclerosis of coronary artery bypass graft(s) without angina pectoris; I25.2 Old myocardial infarction; E11.9 Type 2 diabetes mellitus without complications; E78.5 Hyperlipidemia, unspecified; E78.00 Pure hypercholesterolemia, unspecified; Z95.1 Presence of aortocoronary bypass graft; Z79.4 Long term (current) use of insulin; Z79.899 Other long term (current) drug therapy; Z82.49 Family history of ischemic heart disease and other diseases of the circulatory system ==

== ENCOUNTER → 2020-05-26 | Outpatient (CLI) | payer OTHER | LOC: ULTRA 08:03 | PROVIDERS: ATTEND Family Medicine | DX: N28.1 Cyst of kidney, acquired (principal) ==

== ENCOUNTER → 2020-06-29 | Outpatient (CLI) | payer OTHER | LOC: SJCVC 11:21 | PROVIDERS: ATTEND Internal Medicine Cardiovascular Disease | DX: Z45.018 Encounter for adjustment and management of other part of cardiac pacemaker (principal); I25.5 Ischemic cardiomyopathy; I10 Essential (primary) hypertension; E78.00 Pure hypercholesterolemia, unspecified; E11.9 Type 2 diabetes mellitus without complications; I44.2 Atrioventricular block, complete; I65.23 Occlusion and stenosis of bilateral carotid arteries; I48.0 Paroxysmal atrial fibrillation; I25.10 Atherosclerotic heart disease of native coronary artery without angina pectoris; I25.2 Old myocardial infarction; Z79.899 Other long term (current) drug therapy ==

== ENCOUNTER → 2021-01-15 | Outpatient (CLI) | payer OTHER | LOC: SJCVCIMAG 11:17 | PROVIDERS: ATTEND Internal Medicine Cardiovascular Disease | DX: I65.23 Occlusion and stenosis of bilateral carotid arteries (principal); I25.10 Atherosclerotic heart disease of native coronary artery without angina pectoris; E78.00 Pure hypercholesterolemia, unspecified; I25.5 Ischemic cardiomyopathy; I10 Essential (primary) hypertension; I42.8 Other cardiomyopathies; I77.9 Disorder of arteries and arterioles, unspecified; I48.91 Unspecified atrial fibrillation; E11.9 Type 2 diabetes mellitus without complications; I25.2 Old myocardial infarction; Z95.1 Presence of aortocoronary bypass graft; Z95.810 Presence of automatic (implantable) cardiac defibrillator; Z86.16 Personal history of COVID-19; Z79.899 Other long term (current) drug therapy ==

== ENCOUNTER → 2021-03-13 | Outpatient (CLI) | payer OTHER | LOC: SJCVC 10:41 | PROVIDERS: ATTEND Internal Medicine Cardiovascular Disease | DX: I44.2 Atrioventricular block, complete (principal); I25.10 Atherosclerotic heart disease of native coronary artery without angina pectoris; I25.5 Ischemic cardiomyopathy; I48.0 Paroxysmal atrial fibrillation; I25.2 Old myocardial infarction; E78.5 Hyperlipidemia, unspecified; E11.9 Type 2 diabetes mellitus without complications; E78.00 Pure hypercholesterolemia, unspecified; I10 Essential (primary) hypertension; Z95.1 Presence of aortocoronary bypass graft; Z95.0 Presence of cardiac pacemaker; Z98.890 Other specified postprocedural states; Z79.4 Long term (current) use of insulin; Z79.899 Other long term (current) drug therapy; Z86.16 Personal history of COVID-19; Z82.49 Family history of ischemic heart disease and other diseases of the circulatory system ==

== ENCOUNTER → 2021-04-10 | Outpatient (CLI) | payer OTHER | LOC: SJCVCIMAG 10:43 | PROVIDERS: ATTEND Internal Medicine Cardiovascular Disease | DX: I48.91 Unspecified atrial fibrillation (principal); I25.5 Ischemic cardiomyopathy; I25.10 Atherosclerotic heart disease of native coronary artery without angina pectoris; E78.5 Hyperlipidemia, unspecified; I10 Essential (primary) hypertension; E11.9 Type 2 diabetes mellitus without complications; Z95.0 Presence of cardiac pacemaker; Z79.899 Other long term (current) drug therapy; Z95.1 Presence of aortocoronary bypass graft ==

== ENCOUNTER 2021-04-15 11:12 | Emergency (ER) | payer OTHER ==
[~2021-04-15] VITALS: Ht 188 cm; Wt 93.9 kg
[2021-04-15 13:11] LABS: ABSOLUTE NEUTROPHILS 5.3 thou/uL (1.4-8.2); BASOPHILS 1.1 % (0.0-2.0); EOSINOPHILS 1.8 % (0.0-3.0); HEMATOCRIT 34.7 % (42.0-52.0); HEMOGLOBIN 11.6 gm/dL (14.0-18.0); LYMPHOCYTES 17.5 % (24.0-44.0); MCH 31.2 pg (26.0-34.0); MCHC 33.4 g/dL (28.0-37.0); MCV 93.4 fL (80.0-100.0); MONOCYTES 8.5 % (1.0-8.0); PLATELET COUNT 273 thou/uL (150-400); POLYS 71.1 % (36.0-66.0); RBC 3.72 mil/uL (4.50-6.00); RDW 12.8 % (10.5-14.5); WBC 7.5 thou/uL (4.0-11.0)
[2021-04-15 13:28] LABS: CREATININE 2.3 mg/dL (0.7-1.3); POTASSIUM 4.5 mmol/L (3.5-5.1)
[2021-04-15 13:31] LABS: ALBUMIN 3.8 g/dL (3.4-5.0); TOTAL BILIRUBIN 0.4 mg/dL (0.2-1.0); TOTAL PROTEIN 7.8 g/dL (6.4-8.2)
[2021-04-15 14:16] LABS: URINE BILIRUBIN NEGATIVE (Negative); URINE BLOOD NEGATIVE (Negative); URINE CLARITY CLEAR; URINE COLOR YELLOW; URINE GLUCOSE-RANDOM* TRACE (Negative); URINE KETONES NEGATIVE (Negative); URINE LEUKOCYTES-REFLEX NEGATIVE (Negative); URINE NITRITE-REFLEX NEGATIVE (Negative); URINE PROTEIN (DIPSTICK) TRACE (Negative); URINE SPECIFIC GRAVITY 1.015 (1.005-1.035); URINE UROBILINOGEN 0.2 E.U./dl (0.2-1.0)
[2021-04-15] MEDS ORDERED: NORCO5 PO (15:37)
[2021-04-15 15:45] VITALS: BP 166/68
--- NOTE | 2021-04-16 07:17 | EKG ---
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1940 Requested By: Juhi Bowen Order Number: [id number] MD: Raymundo Davison Measurements Intervals [place] Rate: 60 P: -19 [place]: 50 QRS: -33 QRSD: 150 T: QT: 510 QTc: 510 Interpretive Statements A-V dual-paced rhythm with some inhibition No further analysis attempted due to paced rhythm Compared to ECG 04/17/2018 15:26:55 No significant changes Electronically Signed On 04-16-2021 7:17:04 CDT by Raymundo Davison [email or web address] <ELECTRONICALLY SIGNED> By: Raymundo Davison MD, [facility] 04/16/21 0717 1250 1250 Raymundo Davison MD, FACC /EPI
== END 2021-04-15 15:45 | disposition home or self-care (01) ==
LOC: ER 11:12
PROVIDERS: Physician Assistant
DX: R09.1 Pleurisy (principal); R07.81 Pleurodynia; E11.9 Type 2 diabetes mellitus without complications; K21.9 Gastro-esophageal reflux disease without esophagitis; I25.10 Atherosclerotic heart disease of native coronary artery without angina pectoris; I12.9 Hypertensive chronic kidney disease with stage 1 through stage 4 chronic kidney disease, or unspecified chronic kidney disease; N18.9 Chronic kidney disease, unspecified; Z79.4 Long term (current) use of insulin; Z79.899 Other long term (current) drug therapy

== ENCOUNTER → 2021-08-07 | Outpatient (CLI) | payer OTHER ==
[~2021-08-07] MED LIST changes: +NORCO5 PO
== END ==
LOC: SJCVCIMAG 07:49
PROVIDERS: ATTEND Internal Medicine Cardiovascular Disease
DX: I08.1 Rheumatic disorders of both mitral and tricuspid valves (principal); I11.9 Hypertensive heart disease without heart failure; I25.810 Atherosclerosis of coronary artery bypass graft(s) without angina pectoris; E78.00 Pure hypercholesterolemia, unspecified; I48.0 Paroxysmal atrial fibrillation; I65.23 Occlusion and stenosis of bilateral carotid arteries; I25.5 Ischemic cardiomyopathy; E11.9 Type 2 diabetes mellitus without complications; Z86.16 Personal history of COVID-19; Z82.49 Family history of ischemic heart disease and other diseases of the circulatory system; Z95.1 Presence of aortocoronary bypass graft; Z95.0 Presence of cardiac pacemaker; Z95.810 Presence of automatic (implantable) cardiac defibrillator; Z79.4 Long term (current) use of insulin; Z79.899 Other long term (current) drug therapy

== ENCOUNTER 2021-10-19 00:55 | Emergency (ER) | payer OTHER ==
[~2021-10-19] VITALS: Ht 188 cm; Wt 95.3 kg
[2021-10-19 03:00] VITALS: BP 147/89
[2021-10-19] MEDS ORDERED: CEPHALEXIN500 MG PO (03:05)
== END 2021-10-19 04:20 | disposition home or self-care (01) ==
LOC: ER 00:55
DX: S91.112A Laceration without foreign body of left great toe without damage to nail, initial encounter (principal); I12.9 Hypertensive chronic kidney disease with stage 1 through stage 4 chronic kidney disease, or unspecified chronic kidney disease; E11.22 Type 2 diabetes mellitus with diabetic chronic kidney disease; N18.9 Chronic kidney disease, unspecified; I25.2 Old myocardial infarction; K21.9 Gastro-esophageal reflux disease without esophagitis; I25.10 Atherosclerotic heart disease of native coronary artery without angina pectoris; I73.9 Peripheral vascular disease, unspecified; J44.9 Chronic obstructive pulmonary disease, unspecified; I42.9 Cardiomyopathy, unspecified; Z98.890 Other specified postprocedural states; Z79.4 Long term (current) use of insulin; Z79.891 Long term (current) use of opiate analgesic; Z79.899 Other long term (current) drug therapy; Z79.1 Long term (current) use of non-steroidal anti-inflammatories (NSAID); Z88.8 Allergy status to other drugs, medicaments and biological substances; X58.XXXA Exposure to other specified factors, initial encounter; Y93.89 Activity, other specified; Y92.89 Other specified places as the place of occurrence of the external cause; Y99.8 Other external cause status